=== PATIENT | male | born 1985 | race African-American/Black ===

== ENCOUNTER 2021-08-08 06:38 | Emergency (ER) | payer OTHER, SELFPAY ==
[2021-08-08 06:49] VITALS: BP 143/91; PULSE 81; RESP 18; TEMP 37.5; O2SAT 99
--- NOTE | 2021-08-08 07:39 | ED.EYEPROB ---
HPI - Eye Problem General Chief complaint: Eye Problems Stated complaint: left eye drainage Time Seen by Provider: 08/08/21 07:02 Source: RN notes reviewed History of Present Illness HPI Narrative: Patient presents emergency room from home for left eye pain. Patient states symptoms began 3 days ago states that he has had progressive worsening of pain as well as decreased vision in his left eye he states he feels like there is a film over his left pupil states he normally wears glasses but does not wear contacts and states that his eye was stuck shut this morning as he has had increased drainage he states he does rub his eyes at work but denies have anything definitively get into his eye he denies any known trauma or injury denies any fevers or chills Related Data Home Medications Medication Instructions Recorded Confirmed No Home Medications 08/08/21 08/08/21 Allergies Allergy/AdvReac Type Severity Reaction Status Date / Time No Known Allergies Allergy Verified 08/08/21 06:57 Review of Systems Review of Systems: Gen.: Denies fevers or chills Eye: See HPI Neuro: Denies headache Skin: Denies rash Endo: Denies DM PMFSH Past Medical History Medical History (Updated 08/08/21 @ 08:44 by Roger Batres DO) Patient denies significant medical history Social History Social History (Updated 08/08/21 @ 07:40 by Roger Batres DO) Smoking status: Never smoker Exam Narrative: APPEARANCE: No acute distress, nontoxic, resting in bed Eyes: PERRL, EOMI, right eye normal appearance, no swelling of the left upper lower eyelid no foreign body seen, conjunctival erythema with fluorescein stain there is a large irregular area just inferior and medial to the pupil consistent with early ulcer versus large abrasion HEENT: Normocephalic, atraumatic, RESPIRATORY: No respiratory distress MUSCULOSKELETAl: Moves all extremities NEURO: Awake and alert. Following commands, speech normal, no focal deficits SKIN:: Warm, dry. Normal Color no rash or lesions Course Course Emergency Course: Called discussed with ophthalmology at [facility] Dr. Wu recommends transfer to the ER for further evaluation recommends no antibiotics at this time as like to get cultures first Discussed with Dr. Griffiths at [facility] emergency department accepts transfer Discussed with patient plan for transfer in agreement Vital Signs Vital signs: Vital Signs Temperature 99.5 F 08/08/21 06:49 Pulse Rate 81 09/29/21 06:49 Respiratory Rate 18 08/08/21 06:49 Blood Pressure 143/91 H 08/08/21 06:49 Pulse Oximetry 99 08/08/21 06:49 Temperature 99.5 F 08/08/21 06:49 Pulse Rate 59 L 08/08/21 08:32 Respiratory Rate 16 08/08/21 08:32 Blood Pressure 129/72 08/08/21 08:32 Pulse Oximetry 99 08/08/21 06:49 Critical Care Time Critical Care Time Critical Care Time: Yes Total Critical Care Time: 35 Discharge Plan Discharge Clinical Impression: Central corneal ulcer of left eye Patient Disposition: Acute Care Hospital Condition: Stable Prescriptions: No Action No Home Medications RF: 0 Follow-up/Referrals: UNKNOWN,DOCTOR [Primary Care Provider] -
[2021-08-08 08:32] VITALS: BP 129/72; PULSE 59; RESP 16
== END 2021-08-08 09:20 | disposition short-term general hospital (02) ==
PROVIDERS: Emergency Provider Emergency Medicine
DX: H16.012 Central corneal ulcer, left eye (principal)
CPT/HCPCS: 99285; A9270